=== PATIENT | female | born 1960 | race Caucasian/White ===

== ENCOUNTER 2017-11-18 09:43 | Day surgery (SDC) | payer OTHER ==
[2017-11-18] MEDS: TRIAMCINOLONE PRES FR 40 MG/ML 1ML(TRIESENCE)(OR EYE ONLY)(J3300 PER 1MG) As Ordered (06:37)
[2017-11-18] MEDS: MOXIFLOXACIN IN BSS 0.25MG/0.25ML INTRACAMERAL INJ (OR EYE ONLY)(J2280) As Ordered (06:38)
[~2017-11-18 09:43] MED LIST: ACETAMINOPHEN 325 MG TAB PO
[2017-11-18] MEDS ORDERED: LIDOCAINE 1% MDV 20ML VIAL SQ (10:00)
[2017-11-18] MEDS ORDERED: TROPICAMIDE 1% OPHTH SOLN 2ML As Ordered (10:27)
[2017-11-18] MEDS ORDERED: PHENYLEPHRINE 2.5% OPHTH SOL 2ML As Ordered (10:27)
[2017-11-18] MEDS ORDERED: CYCLOPENTOLATE 2% OPHTH SOLN 2ML BTL As Ordered (10:27)
[2017-11-18] MEDS ORDERED: OFLOXACIN 0.3 % (OCUFLOX) OPTH SOL 5ML As Ordered (10:27)
[2017-11-18] MEDS: LIDOCAINE 3.5 % 1ML OPHTH TOPICAL GEL OU (10:49)
[2017-11-18] MEDS: OFLOXACIN 0.3 % (OCUFLOX) OPTH SOL 5ML OD (10:49)
[2017-11-18] MEDS: TROPICAMIDE 1% OPHTH SOLN 2ML OD (10:49)
[2017-11-18] MEDS: PHENYLEPHRINE 2.5% OPHTH SOL 2ML OD (10:50)
[2017-11-18] MEDS: CYCLOPENTOLATE 2% OPHTH SOLN 2ML BTL OD (10:50)
[2017-11-18] MEDS: PHENYLEPHRINE HCL 10 % OPHTH. SOL 5ML OD (11:00)
[2017-11-18] MEDS ORDERED: fentaNYL 100 MCG/2 ML INJECTION (J3010) As Ordered (11:38)
[2017-11-18] MEDS ORDERED: MIDAZOLAM INJ 2 MG/2 ML VIAL (J2250) As Ordered (11:38)
[2017-11-18] MEDS: POVIDONE-IODINE 5% OPHTH PREP SOL 30ML As Ordered (12:18)
[2017-11-18] MEDS: HEALON DUET (HEALON 10MG/ML 0.55ML & HEALON ENDOCOAT 30MG/ML 0.85ML) As Ordered (12:19)
[2017-11-18] MEDS: LIDOCAINE 1% SDV 5 ML VIAL As Ordered (12:19)
[2017-11-18] MEDS: BSS with VANC/TOB/EPI for EYE CASES IR (12:19)
[2017-11-18] MEDS: CEFUROXIME 1MG/0.1ML INTRACAMERAL INJ As Ordered (12:20)
[2017-11-18] MEDS ORDERED: TRIMETHOBENZAMIDE 300 MG CAP PO (13:00)
[2017-11-18] MEDS: NS 500 ML IV (13:05)
[2017-11-18] MEDS: PROPARACAINE 0.5% OPHTH SOL 15ML OD (13:10)
[2017-11-18] MEDS: KETOROLAC 0.5% OPHTH SOLN OD (13:15)
[2017-11-18] MEDS: AcetaZOLAMIDE 500 MG ER CAP PO (13:50)
== END 2017-11-18 14:13 | disposition home or self-care (01) ==
LOC: M SDC 09:43
DX: H25.9 Unspecified age-related cataract (principal); H40.811 Glaucoma with increased episcleral venous pressure, right eye; E78.5 Hyperlipidemia, unspecified; Z79.899 Other long term (current) drug therapy; Z88.1 Allergy status to other antibiotic agents
CPT/HCPCS: 66984

== ENCOUNTER 2017-11-26 09:31 | Day surgery (SDC) | payer OTHER ==
[2017-11-26] MEDS ORDERED: LIDOCAINE 1% MDV 20ML VIAL SQ (10:00)
[2017-11-26] MEDS: OFLOXACIN 0.3 % (OCUFLOX) OPTH SOL 5ML OS (10:55)
[2017-11-26] MEDS: PHENYLEPHRINE 2.5% OPHTH SOL 2ML OS (10:55)
[2017-11-26] MEDS: LIDOCAINE 3.5 % 1ML OPHTH TOPICAL GEL OU (10:55)
[2017-11-26] MEDS: TROPICAMIDE 1% OPHTH SOLN 2ML OS (10:55)
[2017-11-26] MEDS: CYCLOPENTOLATE 2% OPHTH SOLN 2ML BTL OS (10:55)
[2017-11-26] MEDS: POVIDONE-IODINE 5% OPHTH PREP SOL 30ML As Ordered (12:02)
[2017-11-26] MEDS: BSS with VANC/TOB/EPI for EYE CASES IR (12:02)
[2017-11-26] MEDS: LIDOCAINE 1% SDV 5 ML VIAL As Ordered (12:02)
[2017-11-26] MEDS: HEALON DUET (HEALON 10MG/ML 0.55ML & HEALON ENDOCOAT 30MG/ML 0.85ML) As Ordered (12:02)
[2017-11-26] MEDS: CEFUROXIME 1MG/0.1ML INTRACAMERAL INJ As Ordered (12:03)
[2017-11-26] MEDS: PHENYLEPHRINE HCL 10 % OPHTH. SOL 5ML OS (12:03)
[2017-11-26] MEDS ORDERED: MIDAZOLAM INJ 2 MG/2 ML VIAL (J2250) As Ordered (12:17)
[2017-11-26] MEDS ORDERED: fentaNYL 100 MCG/2 ML INJECTION (J3010) As Ordered (12:17)
[2017-11-26] MEDS: AcetaZOLAMIDE 500 MG ER CAP PO (12:40)
[2017-11-26] MEDS ORDERED: AcetaZOLAMIDE 500 MG ER CAP As Ordered (12:40)
[2017-11-26] MEDS ORDERED: TRIMETHOBENZAMIDE 300 MG CAP PO (12:45)
[2017-11-26] MEDS: PROPARACAINE 0.5% OPHTH SOL 15ML OS (12:55)
[2017-11-26] MEDS: KETOROLAC 0.5% OPHTH SOLN OS (13:00)
== END 2017-11-26 14:15 | disposition home or self-care (01) ==
LOC: M SDC 09:31
DX: H25.9 Unspecified age-related cataract (principal); H40.812 Glaucoma with increased episcleral venous pressure, left eye; H21.81 Floppy iris syndrome; E78.4 Other hyperlipidemia; Z79.899 Other long term (current) drug therapy; Z88.1 Allergy status to other antibiotic agents
CPT/HCPCS: 66982

== ENCOUNTER 2019-10-09 13:02 | Emergency (ER) | payer OTHER ==
[~2019-10-09] VITALS: Ht 160 cm; Wt 85.9 kg
[~2019-10-09 13:02] MED LIST changes: -ACETAMINOPHEN 325 MG TAB PO; +BIMA01SOL OS; +BIMA01SOL OU; +BRIM1OPD OS; +DOCU5LIQ PO; +FERROUS SULFATE PO; +IBUP80TA PO; +MULTLIQ7 PO; +OYST500T50 PO; +SIMV20TA22 PO; +SIMVASTATIN PO; +percocet
[2019-10-09] MEDS ORDERED: ASPI81TA85 PO (13:10)
[2019-10-09] MEDS ORDERED: BACT800T5 PO (13:10)
[2019-10-09 13:51] LABS: BASO % 0.3 % (0.0-1.0); EOS # 0.1 10^3/uL (0.0-0.5); EOS % 0.8 % (0.0-3.0); HEMATOCRIT 43.4 % (36.0-47.0); HEMOGLOBIN 14.4 g/dl (12.0-15.5); LYMPH % 8.3 % (24.0-44.0); MEAN CORPUSCULAR HEMOGLOBIN 30.4 pg (27.0-33.0); MEAN CORPUSCULAR HGB CONC 33.2 g/dl (32.0-36.5); MEAN CORPUSCULAR VOLUME 91.6 fl (80.0-96.0); MONO # 0.9 10^3/uL (0.0-0.8); MONO % 8.1 % (0.0-5.0); NEUTROPHILS # 9.5 10^3/uL (1.5-8.5); NEUTROPHILS % 81.9 % (36.0-66.0); PLATELET COUNT, AUTOMATED 299 10^3/uL (150-450); RED BLOOD COUNT 4.74 10^6/uL (4.00-5.40); WHITE BLOOD COUNT 11.5 10^3/uL (4.0-10.0)
[2019-10-09 14:18] LABS: ALBUMIN 3.9 GM/DL (3.2-5.2); ALT/SGPT 53 U/L (12-78); BILIRUBIN,DIRECT < 0.1 MG/DL (0.0-0.2); BILIRUBIN,TOTAL 0.4 MG/DL (0.2-1.0); BLOOD UREA NITROGEN 14 MG/DL (7-18); CALCIUM LEVEL 8.8 MG/DL (8.5-10.1); CARBON DIOXIDE LEVEL 29 MEQ/L (21-32); CHLORIDE LEVEL 99 MEQ/L (98-107); CREATININE FOR GFR 0.75 MG/DL (0.55-1.30); GLOMERULAR FILTRATION RATE > 60.0 (>51); GLUCOSE, FASTING 161 MG/DL (70-100); POTASSIUM SERUM 3.9 MEQ/L (3.5-5.1); SODIUM LEVEL 134 MEQ/L (136-145)
[2019-10-09] MEDS ORDERED: JOBSMIS65 MC (14:29)
[2019-10-09 14:55] VITALS: BP 125/82
--- NOTE | 2019-10-09 17:56 | REP ---
LEFT LOWER EXTREMITY DUPLEX DOPPLER VENOUS ULTRASOUND: Real-time compression and duplex Doppler interrogation of the left lower extremity deep venous system is performed. There is no deep vein thrombosis identified. The left common femoral, superficial femoral, and popliteal veins are fully compressible with transducer pressure and demonstrate normal spontaneous and phasic flow. At the site of the palpable lump medially where there is skin redness, there are thrombosed superficial venous varicosities. There is also thrombus in the mid to distal greater saphenous vein. This thrombus in the greater saphenous vein is occlusive. There is no thrombus in the more central aspect of the greater saphenous vein. Electronically Signed by Luis Gaxiola MD 10/12/2019 10:09 P
== END 2019-10-09 15:00 | disposition home or self-care (01) ==
LOC: M ED 13:02
DX: I83.892 Varicose veins of left lower extremity with other complications (principal); I80.3 Phlebitis and thrombophlebitis of lower extremities, unspecified; I51.9 Heart disease, unspecified; E78.5 Hyperlipidemia, unspecified; Z90.710 Acquired absence of both cervix and uterus; Z88.1 Allergy status to other antibiotic agents

== ENCOUNTER → 2020-06-14 | Outpatient (CLI) | payer OTHER ==
[~2020-06-14] MED LIST changes: +ASPI81TA86 PO; +BACT800T5 PO; +JOBSMIS65 MC
== END ==
LOC: M LABSMTC 11:35
PROVIDERS: ATTEND Family Medicine
DX: Z20.822 Contact with and (suspected) exposure to COVID-19 (principal)
CPT/HCPCS: C9803; U0003

== ENCOUNTER 2020-09-21 07:55 | Day surgery (SDC) | payer OTHER ==
[~2020-09-21] VITALS: Ht 160 cm; Wt 81.4 kg
[~2020-09-21 07:55] MED LIST changes: +CENT1TAB PO; +ECOT81TA5 PO; +NS 1,000 ML IV ONE; +PRES10CA2 PO
[2020-09-21] MEDS ORDERED: propofoL 200 MG/20 ML VIAL As Ordered ONE ×2 (08:51→09:12)
--- NOTE | 2020-09-21 09:16 | ROOR ---
Patient Name: Roz Smith Procedure Date: 09/21/2020 8:53 AM Date of : 1960 Age: 59 Room: [facility] Gender: Female Note Status: Finalized Procedure: Total Colonoscopy to Cecum + Biopsy Polypectomy Indications: High risk colon cancer surveillance: Personal history of colonic polyps, Last colonoscopy: 2015 Providers: Wale Kuhn MD Referring MD: Nancy Presley NP Requesting Provider: Medicines: Monitored Anesthesia Care Complications: No immediate complications. Procedure: Pre-Anesthesia Assessment: - The heart rate, respiratory rate, oxygen saturations, blood pressure, adequacy of pulmonary ventilation, and response to care were monitored throughout the procedure. The Colonoscope was introduced through the anus and advanced to the cecum, identified by appendiceal orifice and ileocecal valve. The colonoscopy was performed without difficulty. The patient tolerated the procedure well. The quality of the bowel preparation was excellent. Findings: The perianal and digital rectal examinations were normal. Non-bleeding internal hemorrhoids were found during retroflexion. The hemorrhoids were small and Grade I (internal hemorrhoids that do not prolapse). Multiple small and large-mouthed diverticula were found in the recto-sigmoid colon, sigmoid colon and descending colon. A small polyp was found at 25 cm proximal to the anus. The polyp was sessile. The polyp was removed with a jumbo cold forceps. Resection and retrieval were complete. A small polyp was found at 60 cm proximal to the anus. The polyp was sessile. The polyp was removed with a jumbo cold forceps. Resection and retrieval were complete. A small polyp was found in the cecum. The polyp was sessile. The polyp was removed with a jumbo cold forceps. Resection and retrieval were complete. The exam was otherwise without abnormality on direct and retroflexion views. Impression: - Non-bleeding internal hemorrhoids. - Diverticulosis in the recto-sigmoid colon, in the sigmoid colon and in the descending colon. - One small polyp at 25 cm proximal to the anus, removed with a jumbo cold forceps. Resected and retrieved. - One small polyp at 60 cm proximal to the anus, removed with a jumbo cold forceps. Resected and retrieved. - One small polyp in the cecum, removed with a jumbo cold forceps. Resected and retrieved. - The examination was otherwise normal on direct and retroflexion views. - The exam was otherwise normal to the cecum. Recommendation: - Patient has a contact number available for emergencies. The signs and symptoms of potential delayed complications were discussed with the patient. Return to normal activities tomorrow. Written discharge instructions were provided to the patient. - High fiber diet. - Discharge patient to home. - Continue present medications. - Await pathology results. - Telephone GI clinic for pathology results in 1 week. - Repeat colonoscopy in 5 years for surveillance based on pathology results. - Return to referring physician. - The findings and recommendations were discussed with the patient's family. Procedure Code(s): --- Professional --- 90847, Colonoscopy, flexible; with biopsy, single or multiple Diagnosis Code(s): --- Professional --- Z86.010, Personal history of colonic polyps K64.0, First degree hemorrhoids K63.5, Polyp of colon K57.30, Diverticulosis of large intestine without perforation or abscess without bleeding CPT copyright 2019 [employer]. All rights reserved. The codes documented in this report are preliminary and upon machine design checker review may be revised to meet current compliance requirements. Wale Kuhn MD Wale Kuhn MD 09/21/2020 9:16:35 AM Electronically signed by Wale Kuhn MD Number of Addenda: 0 Note Initiated On: 09/21/2020 8:53 AM Estimated Blood Loss: Estimated blood loss: none.
[2020-09-21 09:33] VITALS: BP 148/79
== END 2020-09-21 09:36 | disposition home or self-care (01) ==
LOC: M OPP 07:55
PROVIDERS: ATTEND Internal Medicine Gastroenterology
DX: Z12.11 Encounter for screening for malignant neoplasm of colon (principal); Z86.010 Personal history of colon polyps; K63.5 Polyp of colon; K57.30 Diverticulosis of large intestine without perforation or abscess without bleeding; K64.0 First degree hemorrhoids; Z79.82 Long term (current) use of aspirin; Z79.899 Other long term (current) drug therapy; Z88.1 Allergy status to other antibiotic agents

== ENCOUNTER → 2021-01-23 | Outpatient (REF) | payer OTHER ==
[~2021-01-23] MED LIST changes: -NS 1,000 ML IV ONE
[2021-01-23 18:18] LABS: HEMATOCRIT 45.1 % (36.0-47.0); MEAN CORPUSCULAR HEMOGLOBIN 31.1 pg (27.0-33.0); MEAN CORPUSCULAR HGB CONC 33.3 g/dl (32.0-36.5); MEAN CORPUSCULAR VOLUME 93.4 fl (80.0-96.0); PLATELET COUNT, AUTOMATED 306 10^3/uL (150-450); RED BLOOD COUNT 4.83 10^6/uL (4.00-5.40); WHITE BLOOD COUNT 10.1 10^3/uL (4.0-10.0)
[2021-01-23 18:55] LABS: ALT/SGPT 43 U/L (12-78); BILIRUBIN,TOTAL 0.4 MG/DL (0.2-1.0); BLOOD UREA NITROGEN 13 MG/DL (7-18); CALCIUM LEVEL 9.5 MG/DL (8.8-10.2); CARBON DIOXIDE LEVEL 30 MEQ/L (21-32); CHLORIDE LEVEL 102 MEQ/L (98-107); CHOLESTEROL LEVEL 211 MG/DL (<200); CHOLESTEROL RISK RATIO 3.981 (<5); CREATININE FOR GFR 0.63 MG/DL (0.55-1.30); GLOMERULAR FILTRATION RATE > 60.0 (>45); GLUCOSE, FASTING 88 MG/DL (70-100); HDL CHOLESTEROL 53 MG/DL (>40); LDL CHOLESTEROL 123 MG/DL (<100); NON-HDL-C 158 MG/DL; POTASSIUM SERUM 4.2 MEQ/L (3.5-5.1); SODIUM LEVEL 138 MEQ/L (136-145); THYROID STIMULATING HORMONE 0.945 uIU/ML (0.358-3.740); TOTAL PROTEIN 6.9 GM/DL (6.4-8.2); TRIGLYCERIDES LEVEL 175 MG/DL (<150)
[2021-01-23 18:56] LABS: TOTAL 25(OH) VITAMIN D 29.1 NG/ML (30.0-100.0)
== END ==
LOC: M SFHCPLAZ 11:41 → M SFHCADAM 11:50
PROVIDERS: ATTEND Nurse Practitioner Adult Health
DX: E78.2 Mixed hyperlipidemia (principal); Z13.29 Encounter for screening for other suspected endocrine disorder; Z13.21 Encounter for screening for nutritional disorder; T14.8XXA Other injury of unspecified body region, initial encounter

== ENCOUNTER → 2021-05-31 | Outpatient (REF) | payer OTHER | LOC: M SFHCPLAZ 12:49 | PROVIDERS: ATTEND Nurse Practitioner Adult Health | DX: R30.0 Dysuria (principal) | CPT/HCPCS: 81002; 87088; 87184; 87186; G0463 ==

== ENCOUNTER → 2021-06-23 | Outpatient (CLI) | payer OTHER | LOC: M WHC 12:47 → EEVIPCON 13:00 | PROVIDERS: ATTEND Nurse Practitioner Adult Health | DX: N63.42 Unspecified lump in left breast, subareolar (principal) | CPT/HCPCS: 76642; 77066; G0279 ==

== ENCOUNTER → 2021-07-18 | Outpatient (CLI) | payer OTHER ==
[~2021-07-18] MED LIST changes: +**SFHN** LIDOCAINE 1% MDV 20ML VIAL ONE; +**SFHN** SODIUM BICARBONATE 8.4% 50MEQ 50ML VIAL ONE
[2021-07-18 14:10] VITALS: BP 140/86
== END ==
LOC: M WHCPRO 12:29
PROVIDERS: ATTEND Surgery
DX: D24.2 Benign neoplasm of left breast (principal)

== ENCOUNTER → 2021-09-05 | Outpatient (REF) | payer OTHER ==
[~2021-09-05] MED LIST changes: -**SFHN** LIDOCAINE 1% MDV 20ML VIAL ONE; -**SFHN** SODIUM BICARBONATE 8.4% 50MEQ 50ML VIAL ONE
== END ==
LOC: M SFHCPLAZ 12:51
PROVIDERS: ATTEND Nurse Practitioner Adult Health
DX: R30.0 Dysuria (principal)

== ENCOUNTER 2021-10-26 06:45 | Emergency (ER) | payer OTHER ==
[~2021-10-26] VITALS: Ht 160 cm; Wt 85.9 kg
[2021-10-26 08:45] VITALS: BP 121/76
== END 2021-10-26 08:55 | disposition home or self-care (01) ==
LOC: M ED 06:45
DX: I83.892 Varicose veins of left lower extremity with other complications (principal); E78.5 Hyperlipidemia, unspecified; I73.9 Peripheral vascular disease, unspecified; H40.9 Unspecified glaucoma; Z83.2 Family history of diseases of the blood and blood-forming organs and certain disorders involving the immune mechanism; Z79.82 Long term (current) use of aspirin; Z79.899 Other long term (current) drug therapy; Z88.1 Allergy status to other antibiotic agents

== ENCOUNTER → 2021-12-15 | Outpatient (REF) | payer OTHER | LOC: M PLALAB 14:36 | PROVIDERS: ATTEND Obstetrics & Gynecology | DX: Z12.4 Encounter for screening for malignant neoplasm of cervix (principal); R87.615 Unsatisfactory cytologic smear of cervix | CPT/HCPCS: 87624; G0123 ==

== ENCOUNTER → 2021-12-18 | Outpatient (CLI) | payer OTHER | LOC: M WHC 10:00 | PROVIDERS: ATTEND Nurse Practitioner Adult Health | DX: R92.8 Other abnormal and inconclusive findings on diagnostic imaging of breast (principal) ==

== ENCOUNTER → 2022-06-25 | Outpatient (CLI) | payer OTHER ==
[2022-06-25 10:24] LABS: HEMATOCRIT 44.4 % (36.0-47.0); HEMOGLOBIN 14.6 g/dl (12.0-15.5); MEAN CORPUSCULAR HEMOGLOBIN 30.4 pg (27.0-33.0); MEAN CORPUSCULAR HGB CONC 32.9 g/dl (32.0-36.5); MEAN CORPUSCULAR VOLUME 92.5 fl (80.0-96.0); PLATELET COUNT, AUTOMATED 280 10^3/uL (150-450); WHITE BLOOD COUNT 9.1 10^3/uL (4.0-10.0)
[2022-06-25 10:34] LABS: INR 0.91; PROTHROMBIN TIME 12.5 SECONDS (12.5-14.5)
[2022-06-25 10:53] LABS: ALBUMIN 3.9 G/DL (3.2-5.2); ALKALINE PHOSPHATASE 92 U/L (46-116); ALT/SGPT 33 U/L (7.0-40); AST/SGOT 25 U/L (<34); BILIRUBIN,TOTAL 0.6 MG/DL (0.3-1.2); BLOOD UREA NITROGEN 13 MG/DL (9-23); CALCIUM LEVEL 9.7 MG/DL (8.3-10.6); CARBON DIOXIDE LEVEL 31 MMOL/L (20-31); CHLORIDE LEVEL 102 MMOL/L (98-107); CHOLESTEROL LEVEL 181 MG/DL (<200); CHOLESTEROL RISK RATIO 3.62 (<5); CREATININE FOR GFR 0.61 MG/DL (0.55-1.30); GLOMERULAR FILTRATION RATE > 60.0 (>45); GLUCOSE, FASTING 102 MG/DL (74-106); HDL CHOLESTEROL 49.9 MG/DL (>40); LDL CHOLESTEROL 104.3 MG/DL (<100); NON-HDL-C 131 MG/DL; POTASSIUM SERUM 4.7 MMOL/L (3.5-5.1); SODIUM LEVEL 138 MMOL/L (136-145); THYROID STIMULATING HORMONE 1.369 uIU/ML (0.55-4.78); TOTAL 25(OH) VITAMIN D 23.7 NG/ML (20.0-100.0); TOTAL PROTEIN 6.5 G/DL (5.7-8.2); TRIGLYCERIDES LEVEL 134 MG/DL (<150)
== END ==
LOC: M PLALAB 08:52
PROVIDERS: ATTEND Nurse Practitioner Adult Health
DX: Z00.00 Encounter for general adult medical examination without abnormal findings (principal); Z13.21 Encounter for screening for nutritional disorder; T14.8XXA Other injury of unspecified body region, initial encounter; Z13.29 Encounter for screening for other suspected endocrine disorder; E78.2 Mixed hyperlipidemia; K57.90 Diverticulosis of intestine, part unspecified, without perforation or abscess without bleeding

== ENCOUNTER → 2022-07-31 | Outpatient (CLI) | payer OTHER | LOC: M PLAIMG 10:19 | PROVIDERS: ATTEND Nurse Practitioner Adult Health | DX: L98.9 Disorder of the skin and subcutaneous tissue, unspecified (principal); M19.072 Primary osteoarthritis, left ankle and foot; M20.42 Other hammer toe(s) (acquired), left foot; R91.8 Other nonspecific abnormal finding of lung field | CPT/HCPCS: 73630; G0463 ==

== ENCOUNTER → 2022-08-15 | Outpatient (REF) | payer OTHER | LOC: M SFHCPLAZ 13:01 | PROVIDERS: ATTEND Physician Assistant | DX: R30.0 Dysuria (principal) ==

== ENCOUNTER → 2022-08-17 | Outpatient (CLI) | payer OTHER | LOC: M WHC 09:09 | PROVIDERS: ATTEND Physician Assistant | DX: N61.0 Mastitis without abscess (principal) ==

== ENCOUNTER → 2023-06-26 | Outpatient (CLI) | payer OTHER | LOC: M WHC 12:37 | PROVIDERS: ATTEND Nurse Practitioner Adult Health | DX: R92.333 Mammographic heterogeneous density, bilateral breasts (principal) | CPT/HCPCS: 77066; G0279 ==

== ENCOUNTER → 2025-03-24 | Outpatient (REF) | payer MEDICARE, OTHER ==
[~2025-03-24] MED LIST changes: -BRIM1OPD OS; +BRIM5DRO25 OS
[2025-03-24 17:18] LABS: PLATELET COUNT, AUTOMATED 314 10^3/uL (150-450)
[2025-03-24 17:33] LABS: ALT/SGPT 30 U/L (7.0-40); AST/SGOT 21 U/L (<34); CALCIUM LEVEL 9.3 MG/DL (8.3-10.6); CARBON DIOXIDE LEVEL 29 MMOL/L (20-31); CHLORIDE LEVEL 104 MMOL/L (98-107); CHOLESTEROL LEVEL 278 MG/DL (<200); CHOLESTEROL RISK RATIO 6.76 (<5); CREATININE FOR GFR 0.85 MG/DL (0.55-1.30); GLOMERULAR FILTRATION RATE 76.0 (>45); NON-HDL-C 236.9 MG/DL; POTASSIUM SERUM 4.2 MMOL/L (3.5-5.1); SODIUM LEVEL 142 MMOL/L (136-145); TRIGLYCERIDES LEVEL 474 MG/DL (<150)
[2025-03-24 17:34] LABS: FREE T4 1.03 NG/DL (0.89-1.76)
== END ==
LOC: M SFHCPLAZ 13:47
PROVIDERS: ATTEND Nurse Practitioner Adult Health
DX: Z00.00 Encounter for general adult medical examination without abnormal findings (principal); E78.2 Mixed hyperlipidemia; E55.9 Vitamin D deficiency, unspecified; Z13.29 Encounter for screening for other suspected endocrine disorder